=== PATIENT | male | born 1945 | race Caucasian/White ===

== ENCOUNTER 2024-06-01 02:42 | Emergency (ER) | payer MEDICARE, OTHER ==
[~2024-06-01] VITALS: Ht 180.3 cm; Wt 65.8 kg
[~2024-06-01 02:42] MED LIST: AMLO5TAB4; ASPI-495; MECL25TA3 PO; ROSU10TA2
[2024-06-01 02:52] VITALS: TEMP 98.7
[2024-06-01 03:24] VITALS: BP 154/81; O2SAT 96
== END 2024-06-01 04:20 | disposition home or self-care (01) ==
LOC: ER 02:44
DX: I10 Essential (primary) hypertension (principal); Z88.8 Allergy status to other drugs, medicaments and biological substances